=== PATIENT | male | born 1955 | race Caucasian/White ===

== ENCOUNTER 2018-01-15 09:33 | Inpatient (IN) | payer OTHER ==
--- NOTE | 2018-01-15 09:58 | PDOC ---
History of Present Illness - General History Source: Patient Exam Limitations: No Limitations - History of Present Illness Initial Comments: 01/15/18 10:45 The patient is a 62 year old male with a significant PMH of right sided abdominal hernia repair who presents to the emergency department with right lower quadrant pain for 4 days. The patient also reports some associated right sided testicular swelling that is worsened with cough, urination, and movement. The patient describes his pain at a 7/10. He states that his last bowel was about 2 days ago. He denies any blood per urine or blood per stool. The patient endorses smoking but, denies any medication. He denies any other symptoms. He denies any fever, chills, nausea, vomit, diarrhea, constipation or other urinary symptoms. He denies any chest pain, shortness of breath, headache and dizziness. The patient denies any other complaints. PCP: Dr. Mckeon <Dulce Welch - Last Filed: 01/15/18 10:45> <Annamarie Reddy - Last Filed: 01/15/18 15:29> - General Chief Complaint: Pain, Acute Stated Complaint: ABD PAIN Time Seen by Provider: 01/15/18 09:57 Past History <Dulce Welch - Last Filed: 01/15/18 10:45> - Past Medical History Anemia: No Asthma: No Cancer: No Cardiac Disorders: No CVA: No COPD: No CHF: No Dementia: No Diabetes: No GI Disorders: No Disorders: No HTN: No Hypercholesterolemia: No Liver Disease: No Seizures: No Thyroid Disease: No Other medical history: DENIES. - Surgical History Abdominal Surgery: Yes (HERNIA) - Suicide/Smoking/Psychosocial Hx Smoking History: Current every day smoker Have you smoked in the past 12 months: Yes Number of Cigarettes Smoked Daily: 10 Information on smoking cessation initiated: Yes 'Breaking Loose' booklet given: 09/09/14 Hx Alcohol Use: No Drug/Substance Use Hx: No Substance Use Type: None Hx Substance Use Treatment: No <Annamarie Reddy - Last Filed: 01/15/18 15:29> - Past Medical History Allergies/Adverse Reactions: Allergies Allergy/AdvReac Type Severity Reaction Status Date / Time No Known Drug Allergies Allergy Verified 01/15/18 09:41 Home Medications: Ambulatory Orders Unobtainable 01/15/18 Review of Systems - Review of Systems Able to Perform ROS?: Yes Comments:: 01/15/18 10:45 GENERAL/CONSTITUTIONAL: No fever or chills. No weakness. HEAD, EYES, EARS, NOSE AND THROAT: No change in vision. No ear pain or discharge. No sore throat. CARDIOVASCULAR: No chest pain or shortness of breath. RESPIRATORY: No cough, wheezing, or hemoptysis. GASTROINTESTINAL: (+) right lower abdominal pain. No nausea, vomiting, diarrhea or constipation. GENITOURINARY: (+)right testicular pain and swelling, dysuria.No frequency, or change in urination. MUSCULOSKELETAL: No joint or muscle swelling or pain. No neck or back pain. SKIN: No rash NEUROLOGIC: No headache, vertigo, loss of consciousness, or change in strength/ sensation. ENDOCRINE: No increased thirst. No abnormal weight change. HEMATOLOGIC/LYMPHATIC: No anemia, easy bleeding, or history of blood clots. ALLERGIC/IMMUNOLOGIC: No hives or skin allergy. <Dulce Welch - Last Filed: 01/15/18 10:45> *Physical Exam - Vital Signs Last Vital Signs Temp Pulse Resp BP Pulse Ox 98.2 F 83 19 143/81 97 01/15/18 09:41 01/15/18 09:41 01/15/18 09:41 01/15/18 09:41 01/15/18 09:41 - Physical Exam Comments: 01/15/18 10:46 GENERAL: Awake, alert, and fully oriented, in no acute distress HEAD: No signs of trauma EYES: PERRLA, EOMI, sclera anicteric, conjunctiva clear ENT: Auricles normal inspection, hearing grossly normal, nares patent, oropharynx clear without exudates. Moist mucosa NECK: Normal ROM, supple, no lymphadenopathy, JVD, or masses LUNGS: Breath sounds equal, clear to auscultation bilaterally. No wheezes, and no crackles HEART: Regular rate and rhythm, normal S1 and S2, no murmurs, rubs or gallops ABDOMEN: (+)lesion on belly. Soft, nontender, normoactive bowel sounds. No guarding, no rebound. No masses EXTREMITIES: (+)left CVA more with movement. Normal range of motion, no edema. No clubbing or cyanosis. No cords, erythema, or tenderness NEUROLOGICAL: Cranial nerves II through XII grossly intact. Normal speech, normal gait SKIN:(+)right scrotal area looks like there is a hernia, tender to palpation and is not reducible. Warm, Dry, normal turgor, no rashes or lesions noted. <Dulce Welch - Last Filed: 01/15/18 10:45> - Vital Signs Last Vital Signs Temp Pulse Resp BP Pulse Ox 98.2 F 83 19 143/81 97 01/15/18 09:41 01/15/18 09:41 01/15/18 09:41 01/15/18 09:41 01/15/18 09:41 <Annamarie Reddy - Last Filed: 01/15/18 15:29> Heart Score/ECG Review - ECG Intrepretation Comment:: 01/15/18 12:53 sinus astrid at 59, nl axis, nl interval, no acute st/t wave findings <Annamarie Reddy - Last Filed: 01/15/18 15:29> ED Treatment Course - LABORATORY CBC & Chemistry Diagram: 01/15/18 10:40 01/15/18 10:27 <Annamarie Reddy - Last Filed: 01/15/18 15:29> Medical Decision Making - Medical Decision Making 01/15/18 10:31 a/p: 62yo male with hx of R hydrocele and inguinal hernia repair in 2014 now with 4 days RLQ and R testicular pain -hasn't had a bm in 2 days -R inguinal hernia with extension of bowel into the scrotal sac on R -L cva ttp -concern for hernia to R inguinal and scrotal region containing bowel, also for poss UTI -will send labs, ekg, cxr, ct abd/pelvis/scrotal ultrasound -will discuss with surgery pending ct and ultrasound findings -will keep npo -ivf hydration -will send lactate -abd is soft, nondistended -pain control -will monitor and reassess -will send pre-op labs 01/15/18 12:39 called by radiology for the ct findings - pt with R inguinal hernia with fat stranding and bowel within the scrotal region, also with small amount of bladder within the hernia sac, no small bowel obstruction also with hypervascular soft tisssue mass to chest wall on L 01/15/18 14:[address] Joseph who will be down to eval the patient. 01/15/18 15:28 Dr Joseph able to reduce the hernia - requests admission to medicine for hernia repair on Thursday case discussed with Dr. Schulte who accepts pt to service <Annamarie Reddy - Last Filed: 01/15/18 15:29> *DC/Admit/Observation/Transfer - Attestations Scribe Attestion: 01/15/18 10:46 Documentation prepared by Dulce Welch, acting as director of medical staff services for Annamarie Reddy MD. <Dulce Welch - Last Filed: 01/15/18 10:45> - Discharge Dispostion Decision to Admit order: Yes - Attestations Physician Attestion: 01/15/18 12:45 I, Dr. Annamarie Reddy, DO, attest that this document has been prepared under my direction and personally reviewed by me in its entirety. I further attest, that it accurately reflects all work, treatment, procedures and medical decision -making performed by me. <Annamarie Reddy - Last Filed: 01/15/18 15:29> Diagnosis at time of Disposition: Hernia, inguinal, right - Discharge Dispostion Condition at time of disposition: Guarded - Referrals Referrals: Zbigniew Mckeon [Primary Care Provider] -
[2018-01-15] MEDS ORDERED: SODIUM CHLORIDE 0.9% 1000 ML INFUS.BAG IV ONE (10:20)
[2018-01-15] MEDS ORDERED: morphine CARPU-JECT 4 MG/1 ML DISP.SYRIN IVPUSH ONE (10:20)
[2018-01-15] MEDS ORDERED: morphine SULFATE 4 MG/ML VIAL ONE (10:42)
[2018-01-15 10:57] LABS: BASO % 1.3 % (0-2.0); HEMATOCRIT 45.6 % (35.4-49); HEMOGLOBIN 15.6 GM/dL (11.7-16.9); LYMPH % 29.1 % (8-40); MCHC 34.2 g/dl (32.0-35.9); MEAN CELL VOLUME 87.7 fl (80-96); MEAN PLT VOLUME 9.9 fl (7.5-11.1); MONO % 9.9 % (3.8-10.2); NEUT % 51.7 % (42.8-82.8); PLATELET COUNT 232 K/MM3 (134-434); RDW 13.9 % (11.9-15.9); WHITE BLOOD COUNT 5.6 K/mm3 (4.0-10.0)
[2018-01-15 11:18] LABS: INR 1.15 (0.83-1.09)
[2018-01-15 11:21] LABS: ACTIVATED PTT 32.6 SECONDS (25.2-36.5)
[2018-01-15 11:24] LABS: URINE APPEARANCE CLEAR; URINE BILIRUBIN NEGATIVE (<2.0 mg/dL); URINE COLOR YELLOW; URINE GLUCOSE (UA) NEGATIVE (NEGATIVE); URINE KETONE NEGATIVE (NEGATIVE); URINE LEUK ESTERASE NEGATIVE (NEGATIVE); URINE NITRITE NEGATIVE (NEGATIVE); URINE PROTEIN NEGATIVE (NEGATIVE); URINE UROBILINOGEN NEGATIVE mg/dL (0.2-1.0)
[2018-01-15 11:31] LABS: EPI CELLS RARE /HPF (FEW); URINE MUCUS RARE
[2018-01-15 11:34] LABS: ALBUMIN 3.6 g/dl (3.4-5.0); ANION GAP 6 MMOL/L (8-16); BILIRUBIN,TOTAL 0.5 mg/dL (0.2-1.0); BLOOD UREA NITROGEN 14 mg/dL (7-18); CALCIUM 9.1 mg/dL (8.5-10.1); CHLORIDE 104 mmol/L (98-107); CO2 30 mmol/L (21-32); GLUCOSE,RANDOM 86 mg/dL (74-106); MAGNESIUM 2.3 mg/dL (1.8-2.4); POTASSIUM 4.7 mmol/L (3.5-5.1); SGOT/AST 13 U/L (15-37); SGPT/ALT 16 U/L (12-78); SODIUM 140 mmol/L (136-145); TOT PROT 7.4 g/dl (6.4-8.2)
[2018-01-15 11:37] LABS: ALK PHOS 114 U/L (45-117); CREATININE 0.7 mg/dL (0.7-1.3)
--- NOTE | 2018-01-15 17:01 | HP ---
Admitting History and Physical - Primary Care Physician PCP: Zbigniew Mckeon - Admission Chief Complaint: RLE abdominal pain History of Present Illness: This is a 62 year old male with pmhx r hydrocele, inguinal hernia repain in 2014 presented to the Ed with RLQ pain x4 days referring to his right testie causing swelling. Pt is able to urinate. Denies hematuria, chest pain, sob, abdominal pain, nausea, vomiting. Hernia was reduced in ED, pt will need surgery. History Source: Patient, Medical Record Limitations to Obtaining History: No Limitations - Smoking History Smoking history: Current every day smoker Have you smoked in the past 12 months: Yes Aproximately how many cigarettes per day: 10 - Alcohol/Substance Use Hx Alcohol Use: No - Social History Usual Living Arrangement: Yes: With Spouse ADL: Independent Home Medications - Allergies Allergies/Adverse Reactions: Allergies Allergy/AdvReac Type Severity Reaction Status Date / Time No Known Drug Allergies Allergy Verified 01/15/18 09:41 - Home Medications Home Medications: Ambulatory Orders Unobtainable 01/15/18 Review of Systems - Review of Systems Constitutional: reports: No Symptoms Eyes: reports: No Symptoms HENT: reports: No Symptoms Neck: reports: No Symptoms Cardiovascular: reports: No Symptoms Respiratory: reports: No Symptoms Gastrointestinal: reports: Abdominal Pain Genitourinary: reports: Testicular Swelling Musculoskeletal: reports: No Symptoms Integumentary: reports: No Symptoms Neurological: reports: No Symptoms Endocrine: reports: No Symptoms Hematology/Lymphatic: reports: No Symptoms Psychiatric: reports: No Symptoms Physical Examination Vital Signs: Vital Signs Temperature 98.4 F 01/15/18 13:04 Pulse Rate 60 01/15/18 16:43 Respiratory Rate 20 01/15/18 16:43 Blood Pressure 138/63 01/15/18 16:43 O2 Sat by Pulse Oximetry (%) 97 01/15/18 16:43 Constitutional: Yes: No Distress Eyes: Yes: Conjunctiva Clear HENT: Yes: Atraumatic Neck: Yes: Supple Cardiovascular: Yes: Regular Rate and Rhythm, S1, S2 Respiratory: Yes: Regular, CTA Bilaterally, Rhonchi Gastrointestinal: Yes: Normal Bowel Sounds, Other (RLQ tenderness to palpation, refer to r scrotal region with swelling to palpation) Extremities: Yes: WNL Edema: No Peripheral Pulses WNL: Yes Integumentary: Yes: WNL Psychiatric: Yes: Alert, Oriented Labs: CBC, BMP 01/15/18 10:40 01/15/18 10:27 Imaging - Results Cat Scan: Report Reviewed Problem List - Problems (1) Hernia, inguinal, right Code(s): K40.90 - UNIL INGUINAL HERNIA, W/O OBST OR GANGR, NOT SPCF RECUR Assessment/Plan Assessment: 62 year old male with abdominal pain Plan: 1. R inguinal hernia - Fat stranding and bowel within scrotal region - Reduced in ED, concern for ischemic bowel - Will go for surgery Thursday - NPO after midnight thursday - Monitor for peritoneal signs Visit type - Emergency Visit Emergency Visit: Yes Care time: The patient presented to the Emergency Department on the above date and was hospitalized for further evaluation of their emergent condition. - New Patient This patient is new to me today: Yes Date on this admission: 01/15/18 - Critical Care Critical Care patient: No Hospitalist Screening - Colonoscopy Questionnaire Colonoscopy Questionnaire: Colonoscopy Questionnaire - Patient: 50 - 75 years old and never had a screening colonoscopy: Unknown History of colon or rectal polyps, or CA: Unknown History of IBD, Crohn's disease or UC: Unknown History of abdominal radiation therapy as a child: Unknown - Relative: 1 with colon or rectal CA, or polyps at age 60 or younger: Unknown Colon or rectal CA diagnosed at age 45 or younger: Unknown Multiple relatives with colon or rectal CA: Unknown - Outcome: Screening Result: Negative Screen
[2018-01-15] MEDS ORDERED: oxyCODONE HCL 5 MG TABLET PO PRN (17:14)
[2018-01-15] MEDS ORDERED: MORPHINE SULFATE 2 MG/ML VIAL IVPUSH PRN (17:14)
--- NOTE | 2018-01-15 17:17 | CONSULT ---
Consult Consult Specialty:: General Surgery Reason for Consultation:: Incarcerated right inguinal hernia. - History of Present Illness Chief Complaint: 62 year old man ,comes to the emergency room c/o right inguinoscrotal swelling for the past 4 days. He has severe pain and has been unable to eat. His last bowel movement was 2 day ago. - History Source History Provided By: Patient, Family Member Limitations to Obtaining History: No Limitations - Alcohol/Substance Use Hx Alcohol Use: No - Smoking History Smoking history: Current every day smoker Have you smoked in the past 12 months: Yes Aproximately how many cigarettes per day: 10 - Social History ADL: Independent Home Medications - Allergies Allergies/Adverse Reactions: Allergies Allergy/AdvReac Type Severity Reaction Status Date / Time No Known Drug Allergies Allergy Verified 01/15/18 09:41 - Home Medications Home Medications: Ambulatory Orders Unobtainable 01/15/18 Physical Exam Vital Signs: Vital Signs Temperature 98.4 F 01/15/18 13:04 Pulse Rate 60 01/15/18 16:43 Respiratory Rate 20 01/15/18 16:43 Blood Pressure 138/63 01/15/18 16:43 O2 Sat by Pulse Oximetry (%) 97 01/15/18 16:43 Gastrointestinal: Yes: Other (Patient has a large right inguinoscrotal swelling , painful ,and incarcerated. Very tender.) Labs: CBC, BMP 01/15/18 10:40 01/15/18 10:27 Imaging - Results Cat Scan: Report Reviewed, Image Reviewed (Large incarcerated right inguinal hernia with bowel, bladder and stranding of fat, suggestive of long standing incarceration.) Assessment/Plan Incarcerated right inguinal hernia, with severe pain and fat stranding on CT scan. Four day history. Plan : Attempt reduction , and if not reduced , emergency surgery,. The hernia was reduced manually, with difficulty. Once reduced , the patient felt better. He has a large defect and is likely to incarcerate again , with risk of bowel entrapment and ischemia. He should be observed , for bowel ischemia, ongoing abdominal pain , and not discharged. He will be operated on Thursday , when the edema and swelling will have been reduced. The patient was informed , and he is scheduled. He will have medical assessment while he is being observed for ant bowel ischemia, or reduction en catie, and intestinal obstruction. Keep Nopo today , resume diet tomorrow.
[2018-01-15 18:13] VITALS: BMI 28.0
[2018-01-15] MEDS: HEPARIN NA (PORCINE) 5,000 UNITS/ML 1ML VIAL SQ SCH (21:13)
[2018-01-16] MEDS: HEPARIN NA (PORCINE) 5,000 UNITS/ML 1ML VIAL SQ SCH ×3 (06:28→20:59)
[2018-01-16 08:26] LABS: HEMATOCRIT 41.1 % (35.4-49); MCH 29.6 pg (25.7-33.7); MCHC 34.1 g/dl (32.0-35.9); MEAN CELL VOLUME 86.9 fl (80-96); MEAN PLT VOLUME 10.5 fl (7.5-11.1); PLATELET COUNT 201 K/MM3 (134-434); RBC 4.73 M/mm3 (4.00-5.60); RDW 13.7 % (11.9-15.9)
[2018-01-16 08:49] LABS: CHLORIDE 105 mmol/L (98-107); POTASSIUM 4.7 mmol/L (3.5-5.1); SODIUM 140 mmol/L (136-145)
--- NOTE | 2018-01-16 08:52 | PN ---
Physical Exam: SUBJECTIVE: Patient seen and examined at the bedside. Denies abdominal pain or any other discomfort. OBJECTIVE: patient for surgery with Dr. Joseph on Thursday01/18/2018 for repair of inguinal hernia s/p reduction of large incarcerated obstructed right inguinal/scrotal hernia. full liquid diet, NPO at midnight thursday Vital Signs Period Temp Pulse Resp BP Sys/Wang Pulse Ox Last 24 Hr 98.2 F-99.1 F 57-99 16-20 116-143/58-88 95-97 GENERAL: The patient is awake, alert, and fully oriented, in no acute distress. HEAD: Normal with no signs of trauma. EYES: PERRL, extraocular movements intact, sclera anicteric, conjunctiva clear. No ptosis. ENT: Ears normal, nares patent, oropharynx clear without exudates, moist mucous membranes. NECK: Trachea midline, full range of motion, supple. LUNGS: mild congestion on posterior upper lobes, no wheezing, tolerating room air. pt is a currently daily smoker, refusing nicotine patch HEART: Regular rate and rhythm, S1, S2 without murmur, rub or gallop. ABDOMEN: right inguinal reduced hernia. +bowel sounds, non tender. EXTREMITIES: no edema. NEUROLOGICAL: Normal speech, gait not observed. PSYCH: Normal mood, normal affect. SKIN: Warm, dry, normal turgor, no rashes or lesions noted Laboratory Results - last 24 hr 01/15/18 01/15/18 01/15/18 10:23 10:27 10:27 WBC RBC Hgb Hct MCV MCH MCHC RDW Plt Count MPV Absolute Neuts (auto) Neutrophils % Lymphocytes % Monocytes % Eosinophils % Basophils % Nucleated RBC % PT with INR 13.00 INR 1.15 H PTT (Actin FS) 32.6 Sodium 140 Potassium 4.7 Chloride 104 Carbon Dioxide 30 Anion Gap 6 L BUN 14 Creatinine 0.7 Creat Clearance w eGFR > 60 Random Glucose 86 Lactic Acid Calcium 9.1 Magnesium 2.3 Total Bilirubin 0.5 AST 13 L ALT 16 D Alkaline Phosphatase 114 Total Protein 7.4 Albumin 3.6 Urine Color Yellow Urine Appearance Clear Urine pH 6.0 Ur Specific [place] 1.024 Urine Protein Negative Urine Glucose (UA) Negative Urine Ketones Negative Urine Blood 1+ H Urine Nitrite Negative Urine Bilirubin Negative Urine Urobilinogen Negative Ur Leukocyte Esterase Negative Urine WBC (Auto) 1 Urine RBC (Auto) 13 Ur Epithelial Cells Rare Urine Mucus Rare Blood Type Antibody Screen 01/15/18 01/15/18 01/15/18 10:27 10:40 10:45 WBC 5.6 RBC 5.20 Hgb 15.6 Hct 45.6 MCV 87.7 MCH 30.0 MCHC 34.2 RDW 13.9 Plt Count 232 D MPV 9.9 Absolute Neuts (auto) 2.9 Neutrophils % 51.7 D Lymphocytes % 29.1 D Monocytes % 9.9 Eosinophils % 8.0 H D Basophils % 1.3 Nucleated RBC % 0 PT with INR INR PTT (Actin FS) Sodium Potassium Chloride Carbon Dioxide Anion Gap BUN Creatinine Creat Clearance w eGFR Random Glucose Lactic Acid 1.3 Calcium Magnesium Total Bilirubin AST ALT Alkaline Phosphatase Total Protein Albumin Urine Color Urine Appearance Urine pH Ur Specific [place] Urine Protein Urine Glucose (UA) Urine Ketones Urine Blood Urine Nitrite Urine Bilirubin Urine Urobilinogen Ur Leukocyte Esterase Urine WBC (Auto) Urine RBC (Auto) Ur Epithelial Cells Urine Mucus Blood Type A POSITIVE Antibody Screen Negative 01/16/18 07:00 WBC 6.0 RBC 4.73 Hgb 14.0 Hct 41.1 MCV 86.9 MCH 29.6 MCHC 34.1 RDW 13.7 Plt Count 201 MPV 10.5 Absolute Neuts (auto) Neutrophils % Lymphocytes % Monocytes % Eosinophils % Basophils % Nucleated RBC % PT with INR INR PTT (Actin FS) Sodium Potassium Chloride Carbon Dioxide Anion Gap BUN Creatinine Creat Clearance w eGFR Random Glucose Lactic Acid Calcium Magnesium Total Bilirubin AST ALT Alkaline Phosphatase Total Protein Albumin Urine Color Urine Appearance Urine pH Ur Specific [place] Urine Protein Urine Glucose (UA) Urine Ketones Urine Blood Urine Nitrite Urine Bilirubin Urine Urobilinogen Ur Leukocyte Esterase Urine WBC (Auto) Urine RBC (Auto) Ur Epithelial Cells Urine Mucus Blood Type Antibody Screen Active Medications Generic Name Dose Route Start Last Admin Trade Name Freq PRN Reason Stop Dose Admin Heparin Sodium (Porcine) 5,000 unit 01/15/18 22:00 01/16/18 06:28 Heparin - SQ 5,000 unit TID CHRIS Administration Sodium Chloride 1,000 mls @ 100 mls/hr 01/16/18 08:45 Normal Saline - IV ASDIR CHRIS Morphine Sulfate 2 mg 01/15/18 17:14 Morphine Sulfate IVPUSH Q4H PRN PAIN LEVEL 7 - 10 Oxycodone HCl 5 mg 01/15/18 17:14 Roxicodone - PO Q4H PRN PAIN LEVEL 4 - 6 ASSESSMENT/PLAN: Patient is a 62 year old male with a past medical history of every day smoker and right sided abdominal hernia repair. He comes to the ED on 01/15/2018 with abdominal pain and was found to have a right inguinal hernia/scrotal which was reduced in the ED. Imaging: abd ct: bilateral inguinal hernias, larger on the right with portions of the dome of the bladder. a knuckle of sigmoid colon is noted in the vicinity of the internal os of this hernia. No bowel obstruction. some stranding of the fat w/in the hernia noted. Lungs: hypervascular lesion within the left chest wall. malignancy cannot be excluded. GI: Right inguinal/scrotal hernia: reduced in the ED, + bowel sounds, no abdominal pain/tenderness, passing gas. Patient for surgical repair on Thursday with Dr. Joseph. Will give full liquid diet and make NPO midnight thursday for surgery. Surgical clearance prior to surgery. Pulm: Mild upper lung congestion: Tolerating room air, in no respiratory distress. CT shows hypervascular lesion within the left chest wall. malignancy cannot be excluded. Pulm to be consulted and will need outpatient. follow up. psyche: Everyday smoker: counselled on cessation and benefits. refusing to quit, does not want a nicotine patch. fen normal saline monitor electrolytes full liquid diet prophy heparin Visit type - Emergency Visit Emergency Visit: Yes ED Registration Date: 01/15/18 Care time: The patient presented to the Emergency Department on the above date and was hospitalized for further evaluation of their emergent condition. - New Patient This patient is new to me today: Yes Date on this admission: 01/16/18 - Critical Care Critical Care patient: No - Discharge Referral Referred to [facility] No
[2018-01-16 09:18] LABS: ANION GAP 11 MMOL/L (8-16); BLOOD UREA NITROGEN 13 mg/dL (7-18); CALCIUM 8.6 mg/dL (8.5-10.1); CO2 24 mmol/L (21-32); CREATININE 0.6 mg/dL (0.7-1.3); GLUCOSE,RANDOM 66 mg/dL (74-106)
[2018-01-16] MEDS: SODIUM CHLORIDE 1,000 ML IV SCH ×2 (09:32→20:59)
--- NOTE | 2018-01-16 11:17 | PN ---
Progress Note, Physician History of Present Illness: S/P Reduction of incarcerated right inguinoscrotal hernia , with fat stranding , bladder and intestine in the sac. - Current Medication List Current Medications: Active Medications Heparin Sodium (Porcine) (Heparin -) 5,000 unit SQ TID [facility] Last Admin: 01/16/18 06:28 Dose: 5,000 unit Sodium Chloride (Normal Saline -) 1,000 mls @ 100 mls/hr IV ASDIR [facility] Last Admin: 01/16/18 09:32 Dose: 100 mls/hr Morphine Sulfate (Morphine Sulfate) 2 mg IVPUSH Q4H PRN PRN Reason: PAIN LEVEL 7 - 10 Oxycodone HCl (Roxicodone -) 5 mg PO Q4H PRN PRN Reason: PAIN LEVEL 4 - 6 - Objective Vital Signs: Vital Signs Temperature 98.3 F 01/16/18 05:30 Pulse Rate 57 L 01/16/18 05:30 Respiratory Rate 20 01/16/18 01:14 Blood Pressure 116/63 01/16/18 05:30 O2 Sat by Pulse Oximetry (%) 95 01/16/18 01:14 Labs: CBC, BMP 01/16/18 07:00 01/16/18 07:00 INR, PTT INR 1.15 (0.83-1.09) H 01/15/18 10:27 Assessment/Plan Patient is improving, still has a large right inguinal hernia. Abdominal X-ray shows improvement in the dilated small bowel loops, with air and stool all the way to the rectum. Intestinal obstruction has improved, Should have hernia repair before the next attack , with strangulation , with its associated morbidity. He is scheduled for surgery on Thursday. Continue medical assessment for surgery.
--- NOTE | 2018-01-16 13:01 | PN ---
Progress Note, Physician - Current Medication List Current Medications: Active Medications Heparin Sodium (Porcine) (Heparin -) 5,000 unit SQ TID [facility] Last Admin: 01/16/18 06:28 Dose: 5,000 unit Sodium Chloride (Normal Saline -) 1,000 mls @ 100 mls/hr IV ASDIR [facility] Last Admin: 01/16/18 09:32 Dose: 100 mls/hr Morphine Sulfate (Morphine Sulfate) 2 mg IVPUSH Q4H PRN PRN Reason: PAIN LEVEL 7 - 10 Oxycodone HCl (Roxicodone -) 5 mg PO Q4H PRN PRN Reason: PAIN LEVEL 4 - 6 - Objective Vital Signs: Vital Signs Temperature 98.3 F 01/16/18 10:00 Pulse Rate 60 01/16/18 10:00 Respiratory Rate 18 01/16/18 10:00 Blood Pressure 129/66 01/16/18 10:00 O2 Sat by Pulse Oximetry (%) 95 01/16/18 01:14 Labs: CBC, BMP 01/16/18 07:00 01/16/18 07:00 INR, PTT INR 1.15 (0.83-1.09) H 01/15/18 10:27 Assessment/Plan S/P reduction of a large incarcerated , obstructed right inguinoscrotal hernia. Patient feels better. Hernia reduced, abdomen is soft , not distended , not tender. He has passed flatus. Repair of inguinal hernia planned for 01/19/2108. Resume feeding. NPO from tomorrow midnight.
--- NOTE | 2018-01-16 19:13 | EKG ---
Test Reason : Blood Pressure : / mmHG Vent. Rate : 059 BPM Atrial Rate : 059 BPM P-R Int : 136 ms QRS Dur : 078 ms QT Int : 414 ms P-R-T Axes : 049 014 037 degrees QTc Int : 409 ms SINUS BRADYCARDIA OTHERWISE NORMAL ECG WHEN COMPARED WITH ECG OF 25-SEP-2014 10:07, NO SIGNIFICANT CHANGE WAS FOUND Confirmed by STEPHANIA FARIA MD ([id number]) on 01/16/2018 7:12:46 PM Referred By: Confirmed By:STEPHANIA FARIA MD
[2018-01-17] MEDS: HEPARIN NA (PORCINE) 5,000 UNITS/ML 1ML VIAL SQ SCH ×3 (06:11→22:08)
[2018-01-17] MEDS: SODIUM CHLORIDE 1,000 ML IV SCH ×2 (06:11→17:11)
[2018-01-17 07:44] LABS: BASO % 1.2 % (0-2.0); EOS % 10.8 % (0-4.5); HEMATOCRIT 40.2 % (35.4-49); HEMOGLOBIN 13.7 GM/dL (11.7-16.9); MCH 29.7 pg (25.7-33.7); MCHC 34.2 g/dl (32.0-35.9); MEAN CELL VOLUME 86.8 fl (80-96); MEAN PLT VOLUME 10.1 fl (7.5-11.1); MONO % 8.6 % (3.8-10.2); NEUT % 45.4 % (42.8-82.8); PLATELET COUNT 188 K/MM3 (134-434); RBC 4.63 M/mm3 (4.00-5.60); RDW 13.3 % (11.9-15.9); WHITE BLOOD COUNT 4.8 K/mm3 (4.0-10.0)
[2018-01-17 08:17] LABS: ALBUMIN 2.8 g/dl (3.4-5.0); ALK PHOS 96 U/L (45-117); ANION GAP 6 MMOL/L (8-16); BILIRUBIN,TOTAL 0.4 mg/dL (0.2-1.0); BLOOD UREA NITROGEN 10 mg/dL (7-18); CALCIUM 7.9 mg/dL (8.5-10.1); CHLORIDE 106 mmol/L (98-107); CO2 28 mmol/L (21-32); CREATININE 0.5 mg/dL (0.7-1.3); GLUCOSE,RANDOM 88 mg/dL (74-106); MAGNESIUM 2.1 mg/dL (1.8-2.4); POTASSIUM 4.6 mmol/L (3.5-5.1); SGOT/AST 13 U/L (15-37); SGPT/ALT 12 U/L (12-78); SODIUM 140 mmol/L (136-145)
--- NOTE | 2018-01-17 12:01 | PN ---
Physical Exam: SUBJECTIVE: Patient seen and examined. No acute distress. OBJECTIVE: Vital Signs Period Temp Pulse Resp BP Sys/Wang Pulse Ox Last 24 Hr 98.6 F-98.9 F 55-66 18-20 109-130/42-74 96 GENERAL: The patient is awake, alert, and fully oriented, in no acute distress. HEAD: Normal with no signs of trauma. EYES: PERRL, extraocular movements intact, sclera anicteric, conjunctiva clear. No ptosis. ENT: Ears normal, nares patent, oropharynx clear without exudates, moist mucous membranes. NECK: Trachea midline, full range of motion, supple. LUNGS: mild congestion on posterior upper lobes, no wheezing, tolerating room air. pt is a currently daily smoker, refusing nicotine patch HEART: Regular rate and rhythm, S1, S2 without murmur, rub or gallop. ABDOMEN: right inguinal reduced hernia. +bowel sounds, non tender. EXTREMITIES: no edema. NEUROLOGICAL: Normal speech, gait not observed. PSYCH: Normal mood, normal affect. SKIN: Warm, dry, normal turgor, no rashes or lesions noted Laboratory Results - last 24 hr 01/17/18 01/17/18 07:00 07:00 WBC 4.8 RBC 4.63 Hgb 13.7 Hct 40.2 MCV 86.8 MCH 29.7 MCHC 34.2 RDW 13.3 Plt Count 188 MPV 10.1 Absolute Neuts (auto) 2.2 Neutrophils % 45.4 Lymphocytes % 34.0 Monocytes % 8.6 Eosinophils % 10.8 H Basophils % 1.2 Nucleated RBC % 0 Sodium 140 Potassium 4.6 Chloride 106 Carbon Dioxide 28 Anion Gap 6 L BUN 10 Creatinine 0.5 L Creat Clearance w eGFR > 60 Random Glucose 88 D Calcium 7.9 L Magnesium 2.1 Total Bilirubin 0.4 AST 13 L ALT 12 D Alkaline Phosphatase 96 D Total Protein 6.0 L Albumin 2.8 L Active Medications Generic Name Dose Route Start Last Admin Trade Name Freq PRN Reason Stop Dose Admin Heparin Sodium (Porcine) 5,000 unit 01/15/18 22:00 01/17/18 06:11 Heparin - SQ 5,000 unit TID CHRIS Administration Sodium Chloride 1,000 mls @ 100 mls/hr 01/16/18 08:45 01/17/18 06:11 Normal Saline - IV 100 mls/hr ASDIR CHRIS Administration Morphine Sulfate 2 mg 01/15/18 17:14 Morphine Sulfate IVPUSH Q4H PRN PAIN LEVEL 7 - 10 Oxycodone HCl 5 mg 01/15/18 17:14 Roxicodone - PO Q4H PRN PAIN LEVEL 4 - 6 ASSESSMENT/PLAN: Patient is a 62 year old male with a past medical history of every day smoker and right sided abdominal hernia repair. He comes to the ED on 01/15/2018 with abdominal pain and was found to have a right inguinal hernia/scrotal which was reduced in the ED. Imaging: abd ct: bilateral inguinal hernias, larger on the right with portions of the dome of the bladder. a knuckle of sigmoid colon is noted in the vicinity of the internal os of this hernia. No bowel obstruction. some stranding of the fat w/in the hernia noted. Lungs: hypervascular lesion within the left chest wall. malignancy cannot be excluded. GI: Right inguinal/scrotal hernia: reduced in the ED, + bowel sounds, no abdominal pain/tenderness, passing gas. Patient for surgical repair on Thursday with Dr. Joseph. Will give full liquid diet and make NPO midnight thursday for surgery. Medically and cleared by cardiology to proceed with surgery. Pulm: Mild upper lung congestion: Tolerating room air, in no respiratory distress. CT shows hypervascular lesion within the left chest wall. malignancy cannot be excluded. Pulm to be consulted and will need outpatient follow up. psyche: Everyday smoker: counselled on cessation and benefits. refusing to quit, does not want a nicotine patch. fen normal saline monitor electrolytes full liquid diet, npo at midnight. prophy heparin Visit type - Emergency Visit Emergency Visit: Yes ED Registration Date: 01/15/18 Care time: The patient presented to the Emergency Department on the above date and was hospitalized for further evaluation of their emergent condition. - New Patient This patient is new to me today: No - Critical Care Critical Care patient: No - Discharge Referral Referred to [facility] Med [facility] No
--- NOTE | 2018-01-17 12:41 | PN ---
Progress Note (short form) - Note Progress Note: Chief Complaint: Events noted, notes reviewed, reports persistent RLQ, patient denies any chest pain or dyspnea History of Present Illness: Seen and examined on telemetry. Full consult dictated Medications: Current Medications Heparin Sodium (Porcine) (Heparin -) 5,000 unit SQ TID [facility] Last Admin: 01/17/18 06:11 Dose: 5,000 unit Sodium Chloride (Normal Saline -) 1,000 mls @ 100 mls/hr IV ASDIR [facility] Last Admin: 01/17/18 06:11 Dose: 100 mls/hr Morphine Sulfate (Morphine Sulfate) 2 mg IVPUSH Q4H PRN PRN Reason: PAIN LEVEL 7 - 10 Oxycodone HCl (Roxicodone -) 5 mg PO Q4H PRN PRN Reason: PAIN LEVEL 4 - 6 Review of Systems - Review of Systems Constitutional: denies: Chills or Fever Cardiovascular: as noted above Gastrointestinal: denies: Nausea, Vomiting, Diarrhea, Constipation but reports Abdominal Pain/RLQ Genitourinary: No symptoms reported Neurological: As noted above Vital Signs: Last Vital Signs Temp Pulse Resp BP Pulse Ox 98.6 F 55 L 18 130/70 96 01/17/18 05:00 01/17/18 05:00 01/17/18 05:00 01/17/18 05:00 01/16/18 22:19 Intake & Output 01/14/18 01/15/18 01/16/18 01/17/18 23:59 23:59 23:59 23:59 Intake Total 820 1200 Balance 820 1200 Weight 179 lb 6.4 oz Neck: Supple Negative JVD No Bruit Respiratory: Clear to A&P Cardiovascular: S1 S2 Regular Rate and Rhythm Gastrointestinal: Soft Benign Normal Bowel Sounds Ext: Negative Edema Labs: CBC, BMP 01/17/18 07:00 01/17/18 07:00 Hepatic Panel Total Bilirubin 0.4 mg/dL (0.2-1.0) 01/17/18 07:00 AST 13 U/L (15-37) L 01/17/18 07:00 ALT 12 U/L (12-78) D 01/17/18 07:00 Alkaline Phosphatase 96 U/L (45-117) D 01/17/18 07:00 Albumin 2.8 g/dl (3.4-5.0) L 01/17/18 07:00 Assessment/Plan ASSESSMENT: 1. Pre-procedure cardiovascular evaluation prior to proceeding with hernia repair in patient with low to intermediate risk of CAD, clinically asymptomatic 2. Large incarcerated, obstructed right inguino-scrotal hernia post manual reduction for operative intervention 3. Benign prostatic hypertrophy 4. Tobacco abuse PLAN: 1. There are no absolute contraindications in proceeding with planned surgical intervention considering that there is no clinical evidence of ACS and/or decompensated CHF and/or malignant ventricular arrhythmia 2. Echocardiography for for evaluation of LV size and function 3. Patient was strongly counselled smoking cessation 4. Recommend outpatient cardiovascular F/U including MPI study for risk stratification Syl Reed M.D.
--- NOTE | 2018-01-17 13:20 | CONS ---
DATE OF CONSULTATION: DATE OF DICTATION: 01/17/2018 CONSULTATION REQUESTED BY: Hospitalist CHIEF COMPLAINT: Right lower quadrant abdominal discomfort, incarcerated hernia, post manual reduction for surgical intervention; preoperative cardiovascular evaluation. This is a 62-year-old male with no significant past medical history other than inguinal hernia, post repair; benign prostatitic hypertrophy, on therapy; who denied any history of hypertensive cardiovascular disease, diabetes mellitus, hypercholesterolemia; no prior history of coronary artery disease or congestive heart failure; who was admitted to [facility] with right lower quadrant swelling and discomfort and was noted to have evidence of an incarcerated hernia, which was manually reduced, and operative intervention is being planned. Patient denies any chest discomfort. Patient denies any dyspnea, orthopnea, paroxysmal nocturnal dyspnea, or peripheral edema. Patient denies any palpitations, dizziness, lightheadedness, or syncope. Patient denies any fatigue or tiredness. Patient admits to lack of exercise. Patient is a smoker. PAST MEDICAL HISTORY: Benign prostatitic hypertrophy. PAST SURGICAL HISTORY: Inguinal hernia, post repair. SOCIAL HISTORY: Smoker. FAMILY HISTORY: No family history of coronary artery disease. ALLERGIES: None reported. MEDICAL THERAPY: Currently includes subcutaneous heparin 5000 units 3 times a day; morphine sulfate 2 mg IV push every 4 hours; oxycodone 5 mg every 4 hours as needed. REVIEW OF SYSTEMS: Head/Neck: He denies headache, photophobia, blurring of vision. Respiratory: No cough or sputum production. Cardiovascular: As noted above. Gastrointestinal: He denies nausea, vomiting, diarrhea, but reports abdominal discomfort. Genitourinary: History of benign prostatitic hypertrophy. PHYSICAL EXAMINATION: Vital Signs: Blood pressure is 130/70 mmHg, pulse rate is 55 beats/min, temperature 98.6. Head/Neck: Pupils equal and reactive to light and accommodation. Extraocular muscles are intact. Anicteric sclerae. Negative JVD. No bruit appreciated. Chest: Clear to auscultation and percussion. Cardiovascular: S1, S2 regular with no murmur, clicks, or gallops. Abdomen: Soft, benign, normoactive bowel sounds. Extremities: Negative edema. Intact distal pulses. No calf tenderness. Electrocardiogram reveals sinus rhythm, sinus bradycardia; within normal limits. Chest x-ray report was noted. No acute pathology. CBC revealed a white cell count of 4.8, hemoglobin 13.7, platelet count 188. Basic metabolic profile revealed sodium 140, potassium 4.6, BUN of 10, creatinine of 0.5, glucose 88. ASSESSMENT: 1. Preprocedure cardiovascular evaluation prior to proceeding with hernia repair in a patient with low to intermediate risk of coronary artery disease, clinically asymptomatic. 2. Large, incarcerated, obstructed right inguinal scrotal hernia, post manual reduction, for operative intervention. 3. History of benign prostatitic hypertrophy. 4. Tobacco abuse. RECOMMENDATION: 1. There are no absolute contraindications in proceeding with the above planned surgical procedure. Considering that there is no clinical evidence of acute coronary syndrome and/or decompensated congestive heart failure and/or malignant ventricular arrhythmia. 2. Echocardiogram for evaluation of left ventricular size and systolic function. 3. Patient was strongly counseled smoking cessation. 4. Would recommend outpatient additional cardiovascular and followup, including myocardial perfusion imaging study for risk stratification. Thank you for the kind referral. Cameron [id number]
--- NOTE | 2018-01-17 14:00 | PN ---
Progress Note, Physician - Current Medication List Current Medications: Active Medications Heparin Sodium (Porcine) (Heparin -) 5,000 unit SQ TID [facility] Last Admin: 01/17/18 06:11 Dose: 5,000 unit Sodium Chloride (Normal Saline -) 1,000 mls @ 100 mls/hr IV ASDIR [facility] Last Admin: 01/17/18 06:11 Dose: 100 mls/hr Morphine Sulfate (Morphine Sulfate) 2 mg IVPUSH Q4H PRN PRN Reason: PAIN LEVEL 7 - 10 Oxycodone HCl (Roxicodone -) 5 mg PO Q4H PRN PRN Reason: PAIN LEVEL 4 - 6 - Objective Vital Signs: Vital Signs Temperature 98.6 F 01/17/18 05:00 Pulse Rate 55 L 01/17/18 05:00 Respiratory Rate 18 01/17/18 05:00 Blood Pressure 130/70 01/17/18 05:00 O2 Sat by Pulse Oximetry (%) 96 01/16/18 22:19 Labs: CBC, BMP 01/17/18 07:00 01/17/18 07:00 INR, PTT INR 1.15 (0.83-1.09) H 01/15/18 10:27 Assessment/Plan Patient is on the addon list for surgery, for repair of incarcerated right inguinoscrotal hernia, tomorrow. The procedure has been explained to the patient and his family, risks , benefits and complications , have been explained. NPO from midnight.
[2018-01-18] MEDS: SODIUM CHLORIDE 1,000 ML IV SCH ×2 (05:26→15:55)
[2018-01-18] MEDS: HEPARIN NA (PORCINE) 5,000 UNITS/ML 1ML VIAL SQ SCH ×3 (06:42→22:20)
[2018-01-18 07:52] LABS: BASO % 1.1 % (0-2.0); HEMATOCRIT 46.9 % (35.4-49); HEMOGLOBIN 15.4 GM/dL (11.7-16.9); LYMPH % 48.5 % (8-40); MCH 29.3 pg (25.7-33.7); MCHC 32.9 g/dl (32.0-35.9); MEAN CELL VOLUME 89.1 fl (80-96); MONO % 7.6 % (3.8-10.2); NEUT % 33.8 % (42.8-82.8); PLATELET COUNT 211 K/MM3 (134-434); RBC 5.26 M/mm3 (4.00-5.60); RDW 13.6 % (11.9-15.9); WHITE BLOOD COUNT 4.6 K/mm3 (4.0-10.0)
[2018-01-18 08:14] LABS: CHLORIDE 104 mmol/L (98-107); POTASSIUM 4.2 mmol/L (3.5-5.1); SODIUM 142 mmol/L (136-145)
[2018-01-18 08:22] LABS: ALBUMIN 3.4 g/dl (3.4-5.0); ALK PHOS 111 U/L (45-117); ANION GAP 11 MMOL/L (8-16); BILIRUBIN,TOTAL 0.4 mg/dL (0.2-1.0); BLOOD UREA NITROGEN 8 mg/dL (7-18); CALCIUM 8.9 mg/dL (8.5-10.1); CO2 27 mmol/L (21-32); CREATININE 0.7 mg/dL (0.7-1.3); GLUCOSE,RANDOM 100 mg/dL (74-106); SGOT/AST 18 U/L (15-37); SGPT/ALT 17 U/L (12-78); TOT PROT 7.2 g/dl (6.4-8.2)
--- NOTE | 2018-01-18 09:02 | PN ---
Progress Note (short form) - Note Progress Note: Chief Complaint: Events noted, notes reviewed, denies any further abdominal discomfort, patient denies any chest pain or dyspnea History of Present Illness: Seen and examined on telemetry. Events noted, notes reviewed, denies any further abdominal discomfort, patient denies any chest pain or dyspnea Medications: Current Medications Heparin Sodium (Porcine) (Heparin -) 5,000 unit SQ TID [facility] Last Admin: 01/18/18 06:42 Dose: Not Given Sodium Chloride (Normal Saline -) 1,000 mls @ 100 mls/hr IV ASDIR [facility] Last Admin: 01/18/18 05:26 Dose: 100 mls/hr Morphine Sulfate (Morphine Sulfate) 2 mg IVPUSH Q4H PRN PRN Reason: PAIN LEVEL 7 - 10 Oxycodone HCl (Roxicodone -) 5 mg PO Q4H PRN PRN Reason: PAIN LEVEL 4 - 6 Review of Systems - Review of Systems Constitutional: denies: Chills or Fever Cardiovascular: as noted above Gastrointestinal: denies: Nausea, Vomiting, Diarrhea or Constipation Genitourinary: No symptoms reported Neurological: As noted above Vital Signs: Last Vital Signs Temp Pulse Resp BP Pulse Ox 98.3 F 54 L 20 120/66 98 01/18/18 05:00 01/18/18 05:00 01/17/18 21:00 01/18/18 05:00 01/17/18 21:00 Intake & Output 01/15/18 01/16/18 01/17/18 01/18/18 23:59 23:59 23:59 23:59 Intake Total 820 1800 1200 Balance 820 1800 1200 Weight 179 lb 6.4 oz Neck: Supple Negative JVD No Bruit Respiratory: Clear to A&P Cardiovascular: S1 S2 Regular Rate and Rhythm Gastrointestinal: Soft Benign Normal Bowel Sounds Ext: Negative Edema Labs: CBC, BMP 01/18/18 07:15 01/18/18 07:15 Assessment/Plan ASSESSMENT: 1. Pre-procedure cardiovascular evaluation prior to proceeding with hernia repair in patient with low to intermediate risk of CAD, clinically asymptomatic 2. Large incarcerated, obstructed right inguino-scrotal hernia post manual reduction for operative intervention 3. Benign prostatic hypertrophy 4. Tobacco abuse PLAN: 1. As outlined in yesterday's note there are no absolute contraindications in proceeding with planned surgical intervention considering that there is no clinical evidence of ACS and/or decompensated CHF and/or malignant ventricular arrhythmia 2. Echocardiography for for evaluation of LV size and function 3. Patient was strongly counselled smoking cessation 4. Recommend outpatient cardiovascular F/U including MPI study for risk stratification Syl Reed M.D.
[2018-01-18] MEDS ORDERED: ONDANSETRON 4 MG/2 ML VIAL IVPUSH PRN (12:16)
[2018-01-18] MEDS ORDERED: PROMETHAZINE HCL 25 MG/1 ML VIAL IVPUSH PRN (12:16)
[2018-01-18] MEDS ORDERED: MIDAZOLAM HCL 2 MG/2 ML SINGLE DOSE VIAL ONE (12:26)
[2018-01-18] MEDS ORDERED: ROCURONIUM BROMIDE 50 MG/5 ML VIAL ONE (12:26)
[2018-01-18] MEDS ORDERED: fentaNYL CITRATE 250 MCG/5 ML VIAL ONE (12:26)
[2018-01-18] MEDS ORDERED: LACTATED RINGERS SOLUTION 1,000 ML IV SCH (12:30)
--- NOTE | 2018-01-18 12:36 | ECHO ---
Name: JOSE MAYBERRY Exam:Adult Echocardiogram Study Date: 01/18/2018 10:42 AM Age: 62 yrs Reason For Study: SURGERY Height: 67 in Weight: 179 lb BSA: 1.9 m2 MMode/2D Measurements & Calculations IVSd: 1.1 cm Ao root diam: 3.1 cm LVIDd: 4.9 cm LA dimension: 3.4 cm LVIDs: 2.7 cm LVPWd: 1.00 cm EDV(Teich): 112.1 ml ESV(Teich): 28.0 ml Doppler Measurements & Calculations MV E max kush: 61.1 cm/sec Med Peak E' Kush: 8.1 cm/sec MV A max kush: 73.2 cm/sec Med E/e': 7.6 MV E/A: 0.83 Lat Peak E' Kush: 12.8 cm/sec MV dec time: 0.54 sec Lat E/e': 4.8 PI Vmax: 168.3 cm/sec Procedure The study was technically adequate with some images being suboptimal in quality. Left Ventricle The left ventricular size, thickness and function are normal. Ejection Fraction = 55-60%. Grade I monique stolic dysfunction, (abnormal relaxation pattern). Right Ventricle The right ventricle is normal in size and function. Atria Normal left and right atrial size and function. Mitral Valve The mitral valve is grossly normal. There is trace mitral regurgitation. Tricuspid Valve The tricuspid valve is not well visualized, but is grossly normal. There is trace tricuspid regurgita tion. There was insufficient TR detected to calculate RV systolic pressure. Aortic Valve The aortic valve opens well. The aortic valve is trileaflet. No aortic regurgitation is present. Pulmonic Valve The pulmonic valve is not well visualized. Great Vessels The aortic root is normal size. Pericardium/Pleura There is no pericardial effusion. Interpretation Summary There is no comparison study available. The left ventricular size, thickness and function are normal The right ventricle is normal in size and function. There is trace mitral regurgitation. Ejection Fraction = 55-60%. There is trace tricuspid regurgitation. Grade I diastolic dysfunction, (abnormal relaxation pattern). Octavio Gonzalez MD 01/18/2018 12:11 PM
[2018-01-18] MEDS ORDERED: ceFAZolin SODIUM 1 GM VIAL ONE (12:37)
[2018-01-18] MEDS ORDERED: DEXAMETHASONE SOD PHOSPHATE 4 MG/1 ML VIAL ONE (12:37)
[2018-01-18] MEDS ORDERED: KETOROLAC TROMETHAMINE 30 MG/1 ML VIAL ONE (12:37)
[2018-01-18] MEDS ORDERED: LIDOCAINE HCL 2% JELLY (5 ML/TUBE) ONE (12:37)
[2018-01-18] MEDS ORDERED: LIDOCAINE HCL/PF 2% SDV 5ML VIAL ONE (12:37)
[2018-01-18] MEDS ORDERED: SODIUM CHLORIDE 0.9% P/F 10 ML VIAL IJ ONE (12:37)
[2018-01-18] MEDS ORDERED: ceFAZolin SODIUM 1 GM VIAL IVPB ONE (12:40)
[2018-01-18] MEDS ORDERED: BUPIVACAINE HCL/PF 0.5% (5MG/ML) 10 ML VIAL ONE (13:25)
[2018-01-18] MEDS ORDERED: BUPIVACAINE HCL/PF 0.5% (5MG/ML) 10 ML VIAL IJ ONE ×2 (13:52)
[2018-01-18] MEDS ORDERED: NEOSTIGMINE METHYLSULFATE 0.5 MG/ML - 10 ML MDV ONE (13:53)
[2018-01-18] MEDS ORDERED: BENZOIN/ALOE VERA/STORAX/TOLU 58 ML BOTTLE ONE (14:01)
--- NOTE | 2018-01-18 14:07 | OP ---
Operative Note - Note: Operative Date: 01/18/18 Pre-Operative Diagnosis: Incarcerated right inguinoscrotal hernia. Operation: Repair of incarcerated right inguinoscrotal hernia with plug and mesh. Findings: Large direct hernia on the medial aspect of the posterior wall of the inguinal canal. Surgeon: Megan oJseph [employer] Sales Ambassador: Rob Noe Anesthesia: General Specimens Removed: Hernial sac , fibroadipose tissue and lipoma of the cord. Estimated Blood Loss (mls): 20 Operative Report Dictated: Yes
--- NOTE | 2018-01-18 14:28 | SURG ---
Surgery Log Loader Helper Note Log Loader Helper: Rob Noe PA-C Date of Service: 01/18/18 Diagnosis: Incarcerated right inguinoscrotal hernia. Procedure: Repair of incarcerated right inguinoscrotal hernia with plug and mesh. I was present for the entirety of the operative procedure. For further detail, please refer to operative report. Visit type - Case Type Case Type: Scheduled - New patient This patient is new to me today: Yes Date on this admission: 01/18/18
--- NOTE | 2018-01-18 17:03 | PN ---
Physical Exam: SUBJECTIVE: Patient seen and examined. He has pain to R scrotum. He is ready for surgery OBJECTIVE: Vital Signs Period Temp Pulse Resp BP Sys/Wang Pulse Ox Last 24 Hr 97.6 F-99 F 48-55 14-20 120-171/65-80 95-99 PE Neuro: alert, awake, cn 2-12intact Pulm: CTAB CV: s1 s2 rrr no mrg Abd: s nt nd + bs : R scrotal swelling, tenderness, reproducible Ext: no le edema Laboratory Results - last 24 hr 01/18/18 01/18/18 07:15 07:15 WBC 4.6 RBC 5.26 Hgb 15.4 Hct 46.9 D MCV 89.1 MCH 29.3 MCHC 32.9 RDW 13.6 Plt Count 211 MPV 10.0 Absolute Neuts (auto) 1.6 Neutrophils % 33.8 L D Lymphocytes % 48.5 H D Monocytes % 7.6 Eosinophils % 9.0 H Basophils % 1.1 Nucleated RBC % 0 Sodium 142 Potassium 4.2 Chloride 104 Carbon Dioxide 27 Anion Gap 11 BUN 8 Creatinine 0.7 Creat Clearance w eGFR > 60 Random Glucose 100 Calcium 8.9 Total Bilirubin 0.4 AST 18 D ALT 17 D Alkaline Phosphatase 111 D Total Protein 7.2 Albumin 3.4 Active Medications Generic Name Dose Route Start Last Admin Trade Name Vasiliyq PRN Reason Stop Dose Admin Fentanyl 50 mcg 01/18/18 12:16 01/18/18 15:05 Sublimaze Injection - IVPUSH 50 mcg [id number] PRN Administration PAIN-PACU ORDER X 4 DOSES ONLY Heparin Sodium (Porcine) 5,000 unit 01/15/18 22:00 01/18/18 14:34 Heparin - SQ Not Given TID CHRIS Sodium Chloride 1,000 mls @ 100 mls/hr 01/16/18 08:45 01/18/18 15:55 Normal Saline - IV 0 mls ASDIR CHRIS Administration Lactated Ringer's 1,000 mls @ 125 mls/hr 01/18/18 12:30 Lactated Ringers Solution IV ASDIR CHRIS Morphine Sulfate 2 mg 01/15/18 17:14 Morphine Sulfate IVPUSH Q4H PRN PAIN LEVEL 7 - 10 Ondansetron HCl 4 mg 01/18/18 12:16 Zofran Injection IVPUSH Q6H PRN NAUSEA AND/OR VOMITING Oxycodone HCl 5 mg 01/15/18 17:14 Roxicodone - PO Q4H PRN PAIN LEVEL 4 - 6 Promethazine HCl 12.5 mg 01/18/18 12:16 Phenergan Injection - IVPUSH Q6H PRN NAUSEA-FOR RESCUE AFTER 15 MIN Imaging: CTAP: bilateral inguinal hernias, larger on the right with portions of the dome of the bladder. a knuckle of sigmoid colon is noted in the vicinity of the internal os of this hernia. No bowel obstruction. some stranding of the fat w/in the hernia noted. Lungs: hypervascular lesion within the left chest wall. malignancy cannot be excluded. Assessment: 62 year old male with pmhx of every day smoker and right sided abdominal hernia repair admitted with abdominal pain and was found to have a right inguinal hernia/scrotal which was reduced in the ED. Plan: Right inguinal/scrotal hernia - For surgery today Problem List - Problems (1) Hernia, inguinal, right Code(s): K40.90 - UNIL INGUINAL HERNIA, W/O OBST OR GANGR, NOT SPCF RECUR Visit type - Emergency Visit Emergency Visit: Yes ED Registration Date: 01/15/18 Care time: The patient presented to the Emergency Department on the above date and was hospitalized for further evaluation of their emergent condition. - New Patient This patient is new to me today: No - Critical Care Critical Care patient: No
[2018-01-19] MEDS: HEPARIN NA (PORCINE) 5,000 UNITS/ML 1ML VIAL SQ SCH ×2 (05:53→14:05)
--- NOTE | 2018-01-19 07:26 | OP ---
DATE OF OPERATION: 01/18/2018 SEX: Male. AGE: [id number] years old PREOPERATIVE DIAGNOSIS: Recurrent, incarcerated right inguinoscrotal hernia. POSTOPERATIVE DIAGNOSIS: Recurrent, incarcerated right inguinoscrotal hernia. OPERATIVE PROCEDURE: Repair of incarcerated right inguinoscrotal hernia with plug and mesh. SURGEON: Codie Joseph MD CUSTOMER SERVICE REPRESENTATIVE: DIPIKA Arias ANESTHESIA: General. OPERATIVE DESCRIPTION: This 62-year-old man had a large right inguinoscrotal swelling. He came to the emergency room with swelling in the inguinoscrotal area with pain and inability to reduce. I was called in. The hernia was reduced. Patient's pain improved. However, there was continued inguinoscrotal swelling. Patient was admitted and brought in for repair of the hernia to avoid recurrence. Consent was obtained. Risks, benefits, and complications were discussed with the patient. Patient was given general anesthesia. The right scrotum and the groin were painted and draped. Timeout was called. He was given a gram of Ancef. Incision was made in the right groin along a skin crease. This was deepened through the skin, subcutaneous tissue, Edgar fascia, and external oblique aponeurosis. The ilioinguinal nerve and iliohypogastric nerves were identified and preserved throughout the procedure. There was a big inguinoscrotal swelling all the way down to the testicle. This was carefully . The patient had a large defect on the medial aspect of the posterior wall of the inguinal canal. This was a direct type. This was carefully and the contents reduced. This was from the scrotum. A large amount of fibrofatty tissue, which was , as well as a large lipoma of the cord. This was and sent to Pathology. The hernia contents were reduced. The patient had a large defect in the posterior wall of the inguinal canal and a wide internal ring. Two plugs were then inserted through the internal ring and placed behind the transversalis fascia. They were anchored with 2-0 Prolene sutures, passed through the internal oblique and transverse abdominis muscle, brought through the internal ring, caught the outer leaf of the plug, and was reintroduced through the internal ring and brought out through the transversalis abdominis muscle and the internal oblique muscle. Three short sutures were obtained, one above and medial to the internal ring, a second above the internal ring and third above and lateral to the internal ring. The middle suture was passed through both the plugs. Both the plugs were then inserted through the internal ring and placed behind the transversalis fascia. Mesh was then placed over the transversalis fascia. This was anchored at the level of the pubic tubercle with 2-0 Prolene sutures. The anterior leaf of the mesh was placed over the shelving edge of the inguinal ligament and anchored with the VersaTack tacking device. The superior leaf of the mesh was incorporated into the 2-0 Prolene holding the plug behind the transversalis fascia and brought through the mesh, and the knot was fastened. Bilateral suture was passed through both the leaves of the mesh as it was brought around the internal ring to create a new internal ring. Thus, the repair was adequately performed. The mesh and the plug were held together with the internal oblique and transverse abdominis muscle sandwiched in between. Hemostasis was satisfactory at the completion of the procedure. The wound was irrigated. The external oblique aponeurosis was then approximated with continuous 3-0 Vicryl sutures. Edgar fascia was approximated with buried, interrupted 3-0 Vicryl sutures. The subcutaneous tissue and the deep dermal layer were approximated with buried, interrupted 4-0 Monocryl sutures and the skin approximated with continuous 4-0 Monocryl sutures in a running subcuticular fashion. Sponge count and instrument count were correct. Estimated blood loss was less than 20 mL. Dermabond was applied across the skin edges. Patient tolerated the procedure well, was extubated and returned to the recovery room in satisfactory and stable condition. Cameron [id number]
[2018-01-19 09:20] LABS: BASO % 0.8 % (0-2.0); EOS % 0.5 % (0-4.5); HEMATOCRIT 39.4 % (35.4-49); HEMOGLOBIN 13.4 GM/dL (11.7-16.9); LYMPH % 20.9 % (8-40); MCH 29.9 pg (25.7-33.7); MCHC 34.1 g/dl (32.0-35.9); MEAN CELL VOLUME 87.7 fl (80-96); MEAN PLT VOLUME 10.6 fl (7.5-11.1); MONO % 7.5 % (3.8-10.2); NEUT % 70.3 % (42.8-82.8); PLATELET COUNT 193 K/MM3 (134-434); RBC 4.49 M/mm3 (4.00-5.60); RDW 13.3 % (11.9-15.9); WHITE BLOOD COUNT 8.8 K/mm3 (4.0-10.0)
[2018-01-19 09:30] LABS: ANION GAP 6 MMOL/L (8-16); BLOOD UREA NITROGEN 14 mg/dL (7-18); CALCIUM 8.2 mg/dL (8.5-10.1); CHLORIDE 105 mmol/L (98-107); CO2 28 mmol/L (21-32); GLUCOSE,RANDOM 91 mg/dL (74-106); SODIUM 139 mmol/L (136-145)
[2018-01-19 09:31] LABS: CREATININE 0.6 mg/dL (0.7-1.3)
--- NOTE | 2018-01-19 11:07 | PN ---
Progress Note, Physician - Current Medication List Current Medications: Active Medications Fentanyl (Sublimaze Injection -) 50 mcg IVPUSH [id number] PRN PRN Reason: PAIN-PACU ORDER X 4 DOSES ONLY Last Admin: 01/18/18 15:05 Dose: 50 mcg Heparin Sodium (Porcine) (Heparin -) 5,000 unit SQ TID [facility] Last Admin: 01/19/18 05:53 Dose: 5,000 unit Sodium Chloride (Normal Saline -) 1,000 mls @ 100 mls/hr IV ASDIR [facility] Last Admin: 01/18/18 15:55 Dose: 0 mls Morphine Sulfate (Morphine Sulfate) 2 mg IVPUSH Q4H PRN PRN Reason: PAIN LEVEL 7 - 10 Last Admin: 01/18/18 22:32 Dose: 2 mg Ondansetron HCl (Zofran Injection) 4 mg IVPUSH Q6H PRN PRN Reason: NAUSEA AND/OR VOMITING Oxycodone HCl (Roxicodone -) 5 mg PO Q4H PRN PRN Reason: PAIN LEVEL 4 - 6 Promethazine HCl (Phenergan Injection -) 12.5 mg IVPUSH Q6H PRN PRN Reason: NAUSEA-FOR RESCUE AFTER 15 MIN - Objective Vital Signs: Vital Signs Temperature 97.8 F 01/19/18 06:00 Pulse Rate 60 01/19/18 06:00 Respiratory Rate 18 01/19/18 06:00 Blood Pressure 118/64 01/19/18 06:00 O2 Sat by Pulse Oximetry (%) 97 01/18/18 21:00 Labs: CBC, BMP 01/19/18 08:50 01/19/18 08:50 INR, PTT INR 1.15 (0.83-1.09) H 01/15/18 10:27 Assessment/Plan Patient is comfortable. No swelling . Discharge and follow up in my office. Wound can be left open.
--- NOTE | 2018-01-19 11:43 | DS ---
Physical Exam: SUBJECTIVE: Patient seen and examined. Has incision pain, able to ambulate OBJECTIVE: Vital Signs Period Temp Pulse Resp BP Sys/Wang Pulse Ox Last 24 Hr 97.6 F-98.5 F 48-65 14-18 118-171/64-84 95-99 PE Neuro: alert, awake, cn 2-12intact Pulm: CTAB CV: s1 s2 rrr no mrg Abd: s nt nd + bs : R groin incision cdi, jock strap in place Ext: no le edema Laboratory Results - last 24 hr 01/19/18 01/19/18 08:50 08:50 WBC 8.8 RBC 4.49 Hgb 13.4 Hct 39.4 D MCV 87.7 MCH 29.9 MCHC 34.1 RDW 13.3 Plt Count 193 MPV 10.6 Absolute Neuts (auto) 6.2 Neutrophils % 70.3 D Lymphocytes % 20.9 D Monocytes % 7.5 Eosinophils % 0.5 D Basophils % 0.8 Nucleated RBC % 0 Sodium 139 Potassium 4.0 Chloride 105 Carbon Dioxide 28 Anion Gap 6 L BUN 14 Creatinine 0.6 L Creat Clearance w eGFR > 60 Random Glucose 91 Calcium 8.2 L HOSPITAL COURSE: Date of Admission:01/15/18 Date of Discharge: 01/19/18 Minutes to complete discharge: 37 Discharge Summary Reason For Visit: RIGHT INGUINAL HERNIA Current Active Problems Hernia, inguinal, right (Acute) Hospital Course: Hospital Course: 62 year old male with pmhx r hydrocele, inguinal hernia repain in 2014 presented to the Ed with RLQ pain x4 days referring to his right testie causing swelling. Pt is able to urinate. Denies hematuria, chest pain, sob, abdominal pain, nausea, vomiting. Hernia was reduced in ED, pt will need surgery. Imaging: CTAP: bilateral inguinal hernias, larger on the right with portions of the dome of the bladder. a knuckle of sigmoid colon is noted in the vicinity of the internal os of this hernia. No bowel obstruction. some stranding of the fat w/in the hernia noted. Lungs: hypervascular lesion within the left chest wall. malignancy cannot be excluded. Plan: 1. Right inguinal/scrotal hernia 01/18 - POD 1 - Pt stable post op - Surgery follow up next week with Dr. Joseph - Dressing can be left open to air Condition: Stable - Instructions Diet, Activity, Other Instructions: Usual diet and medications Motrin / Percocet for pain . Activity at sam. May shower daily. dressing can be removed. follow up in my office next Thursday at 4.30 pm, 01/25/2018. call [phone]. Scrotal support. Referrals: Zbigniew Mckeon [Primary Care Provider] - Megan Joseph MD [Staff Physician] - 12/27/18 1:30 pm Disposition: HOME - Home Medications Comprehensive Discharge Medication List: Ambulatory Orders Ibuprofen [Motrin -] 400 mg PO TID #21 tablet 01/18/18 Oxycodone HCl/Acetaminophen [Percocet 5-325 mg Tablet -] 1 tab PO Q6H PRN #20 tablet MDD 3 01/18/18 Problem List - Problems (1) Hernia, inguinal, right Code(s): K40.90 - UNIL INGUINAL HERNIA, W/O OBST OR GANGR, NOT SPCF RECUR This patient is new to me today: No Emergency Visit: Yes ED Registration Date: 01/15/18 Care time: The patient presented to the Emergency Department on the above date and was hospitalized for further evaluation of their emergent condition. Critical Care patient: No - Discharge Referral Referred to [facility] Med [facility].: No
[2018-01-19 12:14] VITALS: BP 98/60; PULSE 58; TEMP 98
--- NOTE | 2018-01-19 12:35 | PN ---
Progress Note (short form) - Note Progress Note: Chief Complaint: Events noted, notes reviewed, reports incisional discomfort, patient denies any chest pain or dyspnea History of Present Illness: Seen and examined. Events noted, notes reviewed, reports incisional discomfort, patient denies any chest pain or dyspnea Echocardiography revealed normal LV size and function, normal RV size and function with trace TR Medications: Current Medications Fentanyl (Sublimaze Injection -) 50 mcg IVPUSH [id number] PRN PRN Reason: PAIN-PACU ORDER X 4 DOSES ONLY Last Admin: 01/18/18 15:05 Dose: 50 mcg Heparin Sodium (Porcine) (Heparin -) 5,000 unit SQ TID [facility] Last Admin: 01/19/18 05:53 Dose: 5,000 unit Sodium Chloride (Normal Saline -) 1,000 mls @ 100 mls/hr IV ASDIR [facility] Last Admin: 01/18/18 15:55 Dose: 0 mls Morphine Sulfate (Morphine Sulfate) 2 mg IVPUSH Q4H PRN PRN Reason: PAIN LEVEL 7 - 10 Last Admin: 01/18/18 22:32 Dose: 2 mg Ondansetron HCl (Zofran Injection) 4 mg IVPUSH Q6H PRN PRN Reason: NAUSEA AND/OR VOMITING Oxycodone HCl (Roxicodone -) 5 mg PO Q4H PRN PRN Reason: PAIN LEVEL 4 - 6 Promethazine HCl (Phenergan Injection -) 12.5 mg IVPUSH Q6H PRN PRN Reason: NAUSEA-FOR RESCUE AFTER 15 MIN Review of Systems - Review of Systems Constitutional: denies: Chills or Fever Cardiovascular: as noted above Gastrointestinal: denies: Nausea, Vomiting, Diarrhea or Constipation Genitourinary: No symptoms reported Neurological: As noted above Vital Signs: Last Vital Signs Temp Pulse Resp BP Pulse Ox 98.0 F 58 L 20 98/60 96 01/19/18 12:13 01/19/18 12:13 01/19/18 12:13 01/19/18 12:13 01/19/18 09:00 Neck: Supple Negative JVD No Bruit Respiratory: Clear to A&P Cardiovascular: S1 S2 Regular Rate and Rhythm Gastrointestinal: Soft Benign Normal Bowel Sounds Ext: Negative Edema Labs: CBC, BMP 01/19/18 08:50 01/19/18 08:50 Assessment/Plan ASSESSMENT: 1. Patient with low to intermediate risk of CAD, clinically asymptomatic 2. Large incarcerated, obstructed right inguino-scrotal hernia post manual reduction post operative intervention 3. Benign prostatic hypertrophy 4. Tobacco abuse PLAN: 1. Patient was strongly counselled smoking cessation and abstinence 2. Recommend outpatient cardiovascular F/U including MPI study for risk stratification, discussed in detail with the patient Syl Reed M.D.
--- NOTE | 2018-01-21 17:39 | PATH ---
Surgical Pathology Report Patient Name: JOSE MAYBERRY Med. Rec. #: [id number] /Age/Gender: 1955 (Age: 62) / M Account: [id number] Location: [address] [place] [address]/[facility] Taken: 01/18/2018 Received: 01/19/2018 Reported: 01/21/2018 Physicians: Octavio Schulte M.D. Specimen(s) Received HERNIA SAC AND CONTENTS Clinical History Incarcerated inguinal hernia Final Diagnosis HERNIA SAC AND CONTENTS, RIGHT SIDE, EXCISION AND REPAIR: HERNIA SAC AND FIBROADIPOSE TISSUE. Electronically Signed Chioma Almaraz M.D. Gross Description Received in formalin labeled "hernia sac and contents," is a 6.3 x 5.5 x 2.0 cm portion of islas-guzman fibromembranous tissue with attached fat, consistent with a hernia sac. Road Traffic Controller sections are submitted in one cassette. /01/19/2018 [facility]01/19/2018
== END 2018-01-19 14:14 | disposition home or self-care (01) | DRG 228 ==
LOC: JER 09:33 → JERBED 12:45 → J6S 17:25
PROVIDERS: ADMIT Internal Medicine; ATTEND Nurse Practitioner Acute Care
PROC: 0YU50JZ Supplement Right Inguinal Region with Synthetic Substitute, Open Approach (ICD-10-PCS; principal; 2018-01-18 12:00)
DX: K40.21 Bilateral inguinal hernia, without obstruction or gangrene, recurrent (principal); F17.210 Nicotine dependence, cigarettes, uncomplicated; N40.0 Benign prostatic hyperplasia without lower urinary tract symptoms; N43.3 Hydrocele, unspecified; R91.1 Solitary pulmonary nodule
CPT/HCPCS: 36415; 71046-TC-FY; 74019-TC-FY; 74177-TC; 76870-TC; 80048; 80053; 81003; 81015; 83605; 83735; 85025; 85027; 85610; 85730; 86850; 86900; 86901; 88302-TC; 93005; 93010; 93306-TC; 94760; 97116-GP; 97161-GP; 99284-25; J1644; J7030

== ENCOUNTER 2019-11-29 09:07 | Emergency (ER) | payer OTHER ==
--- NOTE | 2019-11-29 09:15 | PDOC ---
Rapid Medical Evaluation Chief Complaint: Pain, Acute Time Seen by Provider: 11/29/19 09:11 Medical Evaluation: Allergies Allergy/AdvReac Type Severity Reaction Status Date / Time No Known Drug Allergies Allergy Verified 01/15/18 09:41 11/29/19 09:12 CC: left chest mass worsening in pain and size over the past 8 months, he states he had a ct of it by dr weiner and was asked if he wanted sx for it but he wanted to wait since he jsut had a hernia repair a month prior. no resp complai nts Exam: noted large firm mass over left chest at the MAL measuring over 14 cm in diameter. no fluctulance or skin discoloration Plan: chest ct Discharge Disposition - Diagnosis Chest wall mass - Discharge Dispostion Condition at time of disposition: Stable - Referrals - Patient Instructions - Post Discharge Activity
--- NOTE | 2019-11-29 09:29 | PDOC ---
History of Present Illness - General Chief Complaint: Pain, Acute Stated Complaint: FT SIDE SWOLLEN Time Seen by Provider: 11/29/19 09:11 History Source: Patient Exam Limitations: No Limitations - History of Present Illness Initial Comments: 11/29/19 09:29 62 year old male with PMHx R hydrocele, R inguinal hernia repair, psoriasis, 25 pk yr smoker presenting w 1yr enlarging L thoracic wall warm/indurated mass. No skin changes, discharge or bleeding. Pt endorses discomfort only when he's sleeping on L side. Went to PCP Dr Mckeon yesterday who referred to ED for further workup. Hasn't taken meds for pain control. Denies denies cough, fever, chest pain, SOB Past History - Medical History Allergies/Adverse Reactions: Allergies Allergy/AdvReac Type Severity Reaction Status Date / Time No Known Drug Allergies Allergy Verified 11/29/19 09:34 Home Medications: Ambulatory Orders NK [No Known Home Medication] 11/29/19 Anemia: No Asthma: No Cancer: No Cardiac Disorders: No CVA: No COPD: No CHF: No Dementia: No Diabetes: No GI Disorders: No Disorders: No HTN: No Hypercholesterolemia: No Liver Disease: No Seizures: No Thyroid Disease: No - Surgical History Abdominal Surgery: Yes (HERNIA) Appendectomy: No Cardiac Surgery: No Cholecystectomy: No Lung Surgery: No Neurologic Surgery: No Orthopedic Surgery: No - Immunization History Immunization Up to Date: No - Psycho-Social/Smoking History Smoking History: Current every day smoker Have you smoked in the past 12 months: Yes Number of Cigarettes Smoked Daily: 1 Information on smoking cessation initiated: No 'Breaking Loose' booklet given: 09/09/14 - Substance Abuse Hx (Audit-C & DAST Scrn) How often the patient has a drink containing alcohol: Monthly or less Number of drinks the patient has on a typical day: 1 or 2 How often the patient has six or more drinks on one occasion: Less than monthly Score: In Men: 4 or > Positive; In Women: 3 or > Positive: 2 Screen Result (Pos requires Nsg. Audit-10AR): Negative In the last yr the pt used illegal drug/Rx for NonMed reason: No Score: Yes response is considered Positive: 0 Screen Result (Positive result requires Nsg. DAST-10): Negative Review of Systems - Review of Systems Constitutional: No: Chills, Fever HEENTM: No: Eye Pain, Nose Pain Respiratory: No: Cough, Shortness of Breath Cardiac (ROS): No: Chest Pain, Edema ABD/GI: No: Nausea, Vomiting : No: Burning, Dysuria Musculoskeletal: No: Back Pain, Joint Pain Integumentary: No: Bruising, Dryness Neurological: No: Headache, Seizure Psychiatric: No: Anxiety, Depression Endocrine: No: Intolerance to Cold, Intolerance to Heat Hematologic/Lymphatic: No: Anemia, Blood Clots *Physical Exam - Vital Signs Last Vital Signs Temp Pulse Resp BP Pulse Ox 98.6 F 80 16 141/83 97 11/29/19 09:10 11/29/19 09:10 11/29/19 09:10 11/29/19 09:10 11/29/19 09:10 - Physical Exam General Appearance: Yes: Nourished, Appropriately Dressed. No: Apparent Distress HEENT: positive: EOMI, TOM, Normal Voice, Hearing Grossly Normal. negative: Scleral Icterus (R), Scleral Icterus (L) Respiratory/Chest: positive: Lungs Clear, Normal Breath Sounds, Other (L lower anterior chest 10cm indurated warm mass, no skin changes, no drainage/bleeding, not tender). negative: Chest Tender, Respiratory Distress, Crackles, Rales, Rhonchi, Stridor, Wheezing Cardiovascular: positive: Regular Rhythm, Regular Rate, S1, S2. negative: Edema, Murmur Gastrointestinal/Abdominal: positive: Normal Bowel Sounds, Flat, Soft. negative: Tender, Organomegaly Integumentary: positive: Normal Color, Warm Neurologic: positive: Fully Oriented, Alert, Normal Response, Responsive ED Treatment Course - LABORATORY CBC & Chemistry Diagram: 11/29/19 09:22 11/29/19 09:22 Medical Decision Making - Medical Decision Making 11/29/19 11:07 bedside US - septated mass w fluid filled mass, no vascular infiltrated Chest CT - Since a prior study of 05/20/2019, a large left lateral chest wall mass has slightly increased in size now measuring 11.3 x 5.1 x 11.0 cm. The mass is not involving the left rib cage. Slightly prominent left axillary lymph nodes are noted, unchanged since the prior study. Examination of the mediastinum demonstrates no evidence of mediastinal masses, fluid collections or significant lymphadenopathy. The heart is not enlarged. The lung shoemaker are free of pulmonary masses, areas of acute consolidation or pleural effusions. There are slightly increased interstitial markings diffusely that most likely are chronic in nature and are unchanged since the prior study. Evaluation of the upper abdomen demonstrates no acute abnormalities. There is no evidence of acute bony pathology. IMPRESSION: 1. Slightly increased left lateral chest wall mass since 05/20/2019. 2. No additional evidence of acute pathology or significant change. Please see above discussion --- 62 year old male with PMHx R hydrocele, R inguinal hernia repair, psoriasis, 25 pk yr smoker presenting w 1yr enlarging L thoracic wall warm/indurated mass. No respiratory distress. CT showed slightly enlarged chest wall mass [id number] compared to 04/2019, no mediastinal or lung mass. Likely carcinoma (smoking hx). Low concern for abscess (not fluctuant, no sign on CT) Pt refused pain meds DC home w PCP f/u Discharge - Discharge Information Problems reviewed: Yes Clinical Impression/Diagnosis: Chest wall mass Condition: Good Disposition: HOME - Follow up/Referral Referrals: Zbigniew Mckeon [Primary Care Provider] - - Patient Discharge Instructions Additional Instructions: Your CT scan showed that you have a chest wall mass. Take tylenol or ibuprofen if you have pain. Please follow up with your primary care doctor. - Post Discharge Activity
[2019-11-29 09:40] VITALS: BP 141/83; PULSE 80; TEMP 98.6; BMI 28.2
[2019-11-29 09:52] LABS: BASO % 1.3 % (0-2.0); EOS % 14.1 % (0-4.5); HEMATOCRIT 43.5 % (35.4-49); HEMOGLOBIN 14.7 GM/dL (11.7-16.9); LYMPH % 21.9 % (8-40); MCH 29.1 pg (25.7-33.7); MCHC 33.7 g/dl (32.0-35.9); MEAN CELL VOLUME 86.5 fl (80-96); MEAN PLT VOLUME 9.7 fl (7.5-11.1); MONO % 8.2 % (3.8-10.2); NEUT % 54.5 % (42.8-82.8); PLATELET COUNT 266 K/MM3 (134-434); RBC 5.03 M/mm3 (4.00-5.60); RDW 14.3 % (11.9-15.9); WHITE BLOOD COUNT 7.9 K/mm3 (4.0-10.0)
[2019-11-29 10:17] LABS: ALBUMIN 3.3 g/dl (3.4-5.0); BILIRUBIN,TOTAL 0.5 mg/dL (0.2-1); BLOOD UREA NITROGEN 11.2 mg/dL (7-18); CALCIUM 9.1 mg/dL (8.5-10.1); CREATININE 0.7 mg/dL (0.55-1.3); POTASSIUM 4.8 mmol/L (3.5-5.1); TOT PROT 7.9 g/dl (6.4-8.2)
--- NOTE | 2019-11-29 12:13 | PDOC ---
Documentation entered by Norma Smith SCRIBE, acting as scribe for Kike Pantoja MD. Kike Pantoja MD: This documentation has been prepared by the Luis berman Nirvannie, SCRIBE, under my direction and personally reviewed by me in its entirety. I confirm that the documentation accurately reflects all work, treatment, procedures, and medical decision making performed by me. Attending Attestation - Resident Resident Name: Seth Orr - ED Attending Attestation I have performed the following: I have examined & evaluated the patient, The case was reviewed & discussed with the resident, I agree w/resident's findings & plan, Exceptions are as noted - HPI HPI: 11/29/19 09:48 The patient is a 64 year old male with a significant past medical history of hernia repair (1 year ago) who presents to the ED with 1 year of a progressively worsening growth to a left-sided chest wall mass. As per patient, he had an outpatient scan a year ago and offered surgical removal at which time he denied secondary to his recent hernia repair. Patient was evaluated by his PCP yesterday at which time he was advised to report to the ED for further evaluation and workup. He denies any shortness of breath, palpitations, or erythema to the wall. Allergies: NKDA Primary Care Physician: Dr. Mckeon - Physicial Exam PE: 11/29/19 12:12 GENERAL: The patient is awake, alert, and fully oriented, Nontoxic - in no acute distress. LYMPH: No significant cervical/axillary lymph nodes palpable CHEST: Large firm, non tendner, non erythemadous, non fluctuant, non indurated mass on L lateral chest. LUNGS: Breath sounds equal, clear to auscultation bilaterally. No wheezes, no rhonchi, no rales. HEART: Regular rate and rhythm, normal S1 and S2 without murmur, rub or gallop. ABDOMEN: Soft, nontender, No guarding, no rebound. No CVA tenderness EXTREMITIES: Normal range of motion, no edema. NEUROLOGICAL: No facial assymetry, Normal speech, PSYCH: Normal mood, normal affect. SKIN: Warm, Dry, normal turgor, - Medical Decision Making 11/29/19 10:33 64y M hx of inquinal hernia, active smoker presents with L sided chest pass x 1 year. The mass is not painful and pt is otherwise failly asymptomatic without any cp, sob, palpitations, n/v, coleman, 11/29/19 12:13 ct noted slightly increased size no signs of collection unclear etiology will refer to surgery to fu and further definitive mangaement Discharge - Discharge Information Problems reviewed: Yes Clinical Impression/Diagnosis: Chest wall mass Condition: Good Disposition: HOME - Follow up/Referral Referrals: Zbigniew Mckeon [Primary Care Provider] - - Patient Discharge Instructions Additional Instructions: Your CT scan showed that you have a chest wall mass. Take tylenol or ibuprofen if you have pain. Please follow up with your primary care doctor. - Post Discharge Activity
== END 2019-11-29 12:26 | disposition home or self-care (01) ==
LOC: JER 09:07
DX: R22.2 Localized swelling, mass and lump, trunk (principal)
CPT/HCPCS: 36415; 71260-TC; 80053; 85025; 99284-25; Q9967

== ENCOUNTER 2024-10-05 06:44 | Day surgery (SDC) | payer OTHER ==
[2024-10-04 13:07] VITALS: BMI 32.4
[2024-10-05] MEDS ORDERED: BUPIVACAINE HCL/PF 0.25% (2.5MG/ML) 10 ML VIAL ONE (07:50)
[2024-10-05] MEDS ORDERED: ROCURONIUM BROMIDE 50 MG/5 ML SYRINGE ONE ×2 (07:52→09:12)
[2024-10-05] MEDS ORDERED: PROPOFOL 40 ML ONE (07:52)
[2024-10-05] MEDS ORDERED: MIDAZOLAM HCL 2 MG/2 ML SINGLE DOSE VIAL ONE (07:52)
[2024-10-05] MEDS ORDERED: SUCCINYLCHOLINE CHLORIDE 200 MG/10 ML SYRINGE ONE (08:05)
[2024-10-05] MEDS: ceFAZolin SODIUM 1 GM VIAL IVPB ONE (08:15)
[2024-10-05] MEDS: BUPIVACAINE HCL/PF 0.25% (2.5MG/ML) 10 ML VIAL IJ ONE (08:32)
[2024-10-05] MEDS ORDERED: SUGAMMADEX SODIUM 200 MG/2 ML VIAL ONE (10:31)
[2024-10-05] MEDS: LACTATED RINGERS SOLUTION 1,000 ML IV SCH (12:00)
[2024-10-05] MEDS: oxyCODONE HCL 5 MG TABLET PO ONE (13:46)
[2024-10-05] MEDS ORDERED: oxyCODONE HCL 5 MG TABLET ONE (13:47)
[2024-10-05 14:21] VITALS: RESP 20; TEMP 97.3
[2024-10-05 14:24] VITALS: BP 159/84; PULSE 79
== END 2024-10-05 14:20 | disposition home or self-care (01) ==
LOC: JASU-SURG 06:44
PROVIDERS: ATTEND Surgery
PROC: 8E0W4CZ Robotic Assisted Procedure of Trunk Region, Percutaneous Endoscopic Approach (ICD-10-PCS; 2024-10-05)
PROC: 0YU64JZ Supplement Left Inguinal Region with Synthetic Substitute, Percutaneous Endoscopic Approach (ICD-10-PCS; principal; 2024-10-05 08:00)
DX: K40.91 Unilateral inguinal hernia, without obstruction or gangrene, recurrent (principal)
CPT/HCPCS: 49651; S2900; 86850; 86900; 86901; 94760; C1781